=== PATIENT | male | born 1970 | race African-American/Black ===

== ENCOUNTER 2024-01-11 13:10 | Emergency (ER) | payer MEDICAID ==
[~2024-01-11] VITALS: Ht 170.2 cm; Wt 91.0 kg
[2024-01-11 15:10] LABS: CHLORIDE 109 mEq/L (98-107); POTASSIUM 3.7 mEq/L (3.5-5.1); SODIUM 138 mEq/L (136-145)
[2024-01-11 15:11] LABS: CARBON DIOXIDE 27 mEq/L (21-32)
[2024-01-11 15:14] LABS: BASOPHILS % 0.5 % (0.0-2.0); EOSINOPHILS % 1.2 % (0.0-5.0); HEMATOCRIT. 41.5 % (42.0-52.0); HEMOGLOBIN. 14.1 g/dL (14.0-18.0); LYMPHOCYTES % 11.5 % (20.0-50.0); MEAN CORPUSCULAR HEMOGLOBIN 31.3 pg (28.0-32.0); MEAN CORPUSCULAR VOLUME 92.1 fL (80.0-94.0); MONOCYTES % 8.1 % (2.0-8.0); NEUTROPHILS % 78.7 % (40.0-76.0); PLATELET 244 x1000/uL (130-400); RED CELL DISTRIBUTION WIDTH 13.5 % (11.6-14.6); WHITE BLOOD COUNT 12.9 x1000/uL (4.5-11.0)
[2024-01-11 15:16] LABS: CREATININE 0.7 mg/dL (0.6-1.3); GLUCOSE 132 mg/dL (70-105); UREA NITROGEN BLOOD 9 mg/dL (9-23)
[2024-01-11 15:17] LABS: TROPONIN I HIGH SENSITIVITY 4 ng/L (3.0-53)
[2024-01-11 15:18] LABS: ALANINE AMINOTRANSFERASE 26 IU/L (10-49); ASPARTATE AMINOTRANSFERASE 21 IU/L (<34)
[2024-01-11 15:19] LABS: BILIRUBIN TOTAL 0.3 mg/dL (0.1-1.0); PROTEIN TOTAL 6.4 g/dL (6.0-8.3)
[2024-01-11 16:37] VITALS: PULSE 74; O2SAT 98
[2024-01-11] MEDS: IPRATROPIUM/ALBUTEROL 0.5-3(2.5)MG/3ML NEB HHN ONE (16:37)
[2024-01-11] MEDS: DEXAMETHASONE 4MG TABLET PO ONE (17:00)
[2024-01-11 17:12] VITALS: BP 138/72; PULSE 67; RESP 16; TEMP 98.2
[2024-01-11 18:49] LABS: BG BASE EXCESS 1.1 mmol/L (-2.0-2.0); BG CARBOXYHEMOGLOBIN 6.2 % (0.5-1.5); BG DEOXYHEMOGLOBIN 5.1 % (0.0-5.0); BG FRACTION INSPIRED OXYGEN 21; BG HCO3 ACT 25.3 mmol/L (22.0-26.0); BG METHEMOGLOBIN 0.3 % (0.0-1.5); BG OXYGEN SATURATION 94.5 % (92.0-98.5); BG OXYHEMOGLOBIN 88.4 % (94.0-97.0); BG PCO2 39.1 mmHg (35.0-45.0); BG PH 7.429 (7.350-7.450); BG PO2 68.3 mmHg (75.0-100.0); BG SAMPLE SITE RIGHT RADIAL; BG TOTAL HEMOGLOBIN 14.6 g/dL (12.0-18.0); BG VENT MODE ROOM AIR
[2024-01-11 19:24] LABS: TROPONIN I HIGH SENSITIVITY 4 ng/L (3.0-53)
[2024-01-11] MEDS ORDERED: OCUFLX EACHEYE (19:56)
[2024-01-11] MEDS ORDERED: ALBU6.7H15 INH (19:56)
== END 2024-01-11 20:34 | disposition home or self-care (01) ==
LOC: ER 13:10
DX: B34.9 Viral infection, unspecified (principal); H10.89 Other conjunctivitis; I10 Essential (primary) hypertension; Z98.890 Other specified postprocedural states
CPT/HCPCS: 80053; 85025; 84484; 36415; 71045; 94640; 82805; 82375; 93005; 99285; 36600; J8540; Z7610 ×3